=== PATIENT | male | born 1965 | race Hispanic/Latino ===

== ENCOUNTER 2017-11-07 12:11 | Emergency (ER) | payer OTHER ==
[2017-11-07] MEDS ORDERED: TETANUS/DIPHTHERIA TOXOID [ADULT] 0.5 ML VIAL IM ONE (14:23)
== END 2017-11-07 14:36 | disposition home or self-care (01) ==
LOC: EDH 12:11
DX: S80.02XA Contusion of left knee, initial encounter (principal); S50.02XA Contusion of left elbow, initial encounter; S30.0XXA Contusion of lower back and pelvis, initial encounter; S20.219A Contusion of unspecified front wall of thorax, initial encounter; I10 Essential (primary) hypertension; Z79.899 Other long term (current) drug therapy; V29.20XA Unspecified motorcycle rider injured in collision with unspecified motor vehicles in nontraffic accident, initial encounter; Y93.55 Activity, bike riding; Y92.89 Other specified places as the place of occurrence of the external cause; Y99.8 Other external cause status
CPT/HCPCS: 73070; 73502; 73562; 90471; 90714